=== PATIENT | female | born 1955 | race Caucasian/White ===

== ENCOUNTER 2018-09-02 12:26 | Outpatient (CLI) | payer MEDICARE ==
--- NOTE | 2018-09-02 14:29 | MRI ---
MRI LUMBAR SPINE WITH AND WITHOUT CONTRAST: Technique: Multiplanar, multisequence MRI images were obtained of the lumbar spine. Indications: Back pain. Surgery. Comparison: Intraoperative films of lumbar spine, 03-20-17; CT lumbar spine, 03-03-17; MRI lumbar spine , 09-25-15. FINDINGS: Post-operative changes are apparent at L4, L5, and S1. The pedicle screws which were preserved on ariela or CT have been removed. Interbody implants are again noted. Body height and alignment preserved. Deg enerative disc and endplate changes are noted at L1-2 which have progressed since the prior MRI. There is a broad based disc bulge with focal disc protrusion which is more prominent than on the prio r MRI exam. This focal protrusion is central and slightly pronounced to the left. It does compress th e thecal sac and is associated with facet hypertrophy resulting in mild to moderate central canal lorenzo nosis. L2-3: No significant disc bulge. Facet arthrosis. No significant central canal or foraminal stenosis. L3-4: No significant disc bulge. Mild to moderate facet hypertrophy. No significant central canal or foraminal stenosis. L4-5: Interbody implant. No disc bulge or protrusion. Facet hypertrophy. No significant central canal stenosis. Mild foraminal stenosis is present due to facet hypertrophy. L5-S1: Interbody implant. No evidence of disc bulge or protrusion. Facet hypertrophy compresses the t hecal sac on both sides resulting in mild central canal stenosis. Mild foraminal encroachment bilater ally due to facet hypertrophy. IMPRESSION: 1. Degenerative disc and endplate changes at L1-2 with disc protrusion at this level as described abo ve. 2. Post op changes at L4-5 and L5-S1 as described above. POS: [facility]
== END 2018-09-02 12:27 | disposition home or self-care (01) ==
LOC: BICMRI 12:26
PROVIDERS: ATTEND Physical Medicine & Rehabilitation
DX: M54.5 Low back pain (principal); M51.36 Other intervertebral disc degeneration, lumbar region; M51.26 Other intervertebral disc displacement, lumbar region; Z98.890 Other specified postprocedural states
CPT/HCPCS: 72158; 82565

== ENCOUNTER 2024-09-12 14:35 | Emergency (ER) | payer MEDICARE ==
[~2024-09-12 14:35] MED LIST: Iopamidol-370 76% 500 ML MDV (1 ML CHARGE) ONE
[2024-09-12 16:16] LABS: #Basophils 0.07 10x3/uL (0.0-0.2); %Basophils 0.5 % (0.0-1.0); %Eosinophils 0.2 % (0.0-10.0); %Lymphocytes 20.8 % (21.0-51.0); %Monocytes 5.7 % (0.0-10.0); %Neutrophils 72.3 % (42.0-75.0); Hematocrit 43.9 % (36.0-47.0); Hemoglobin 15.3 g/dL (12.0-16.0); Mean Corpuscular HGB CONC 34.9 g/dL (32.0-36.0); Mean Corpuscular Hemoglobin 30.8 pg (27.0-31.0); Mean Corpuscular Volume 88.5 fL (78.0-98.0); Mean Platelet Volume 8.3 fL (7.4-10.4); Platelet Count 295 10x3/uL (130-400); Red Blood Cell (RBC) Count 4.96 mill/uL (4.20-5.40)
[2024-09-12] MEDS ORDERED: Morphine 4 MG/ML VIAL ONE (16:32)
[2024-09-12 16:36] LABS: ALT (SGPT) 35 U/L (8-55); AST (SGOT) 26 U/L (5-34); Albumin 4.1 g/dL (3.4-4.8); Alkaline Phosphatase 73 U/L (40-110); Anion Gap 13 mmol/L (10-20); BUN (Urea Nitrogen) 9 mg/dL (9.8-20.1); Bilirubin, Total 0.6 mg/dL (0.2-1.2); Calc. Creatinine Clearance 0 mL/min (70-130); Calcium 9.7 mg/dL (7.8-10.44); Carbon Dioxide 25 mmol/L (23-31); Chloride 103 mmol/L (98-107); Estimated GFR 94; Globulin 3.7 g/dL (2.4-3.5); Glucose 119 mg/dL (80-115); Lipase 12 U/L (8-78); Potassium 3.9 mmol/L (3.5-5.1); Protein, Total 7.8 g/dL (5.8-8.1); Sodium 137 mmol/L (136-145)
[2024-09-12] MEDS ORDERED: Promethazine HCl 25 MG/ML VIAL ONE (16:36)
[2024-09-12 16:37] LABS: Troponin I Less than 0.010 ng/mL (< 0.028)
[2024-09-12 19:13] LABS: Bacteria/HPF None Seen HPF (None Seen); Bilirubin Negative (Negative); Blood, Urine Negative (Negative); CAUTI Indications for Culture Pelvic or flank pain; Clarity Clear (Clear); Glucose, Urine (Dipstick) Normal (Negative); Ketone, Urine Negative (Negative); Leukocyte Negative Leu/uL (Negative); Nitrite Negative (Negative); Protein, Urine (Dipstick) Negative (Neg-Trace); RBC/HPF 0-3 HPF (0-3); Specific Gravity, Urine 1.039 (1.002-1.036); Squamous Epithelial 0-3 HPF (0-3); Urobilinogen Normal mg/dL (Less than 2); WBC/HPF 0-3 HPF (0-3); pH, Urine 6.5 (5.0-9.0)
[2024-09-12 19:20] LABS: Urine Culture Reflex No No
[2024-09-12] MEDS ORDERED: Dicyclomine 20 MG TAB ONE (21:32)
== END 2024-09-12 22:29 | disposition home or self-care (01) ==
LOC: ERS 14:35
DX: F11.23 Opioid dependence with withdrawal (principal)
CPT/HCPCS: 71045; 74177; 76705; 80053; 81001; 83690; 84484; 85025; 87428; 93005; J2270; J2550; 96365; 96375; Q9967